=== PATIENT | female | born 1950 | race Asian ===

== ENCOUNTER 2021-01-29 18:52 | Inpatient (IN) | payer BC, MEDICAID ==
[2021-01-29] MEDS ORDERED: AMLO-212 PO (18:56)
[2021-01-29] MEDS ORDERED: LOSA50TA39 PO (18:56)
[2021-01-29] MEDS ORDERED: FENO145T21 PO (18:56)
--- NOTE | 2021-01-29 19:00 | NUR ---
RAILROAD SIGNAL OPERATOR NOTE ADMITE 70 YEAR OLD FEMALE TO [facility] UN[facility] AT ROOM 112 FOR [facility] DIRECT ADMIT UNDER MEDICAL SERVICE OF DR KAY WITH ACUTE KIDNEY INJURY WITH LEARNING OFFICER COMPLAIN ABDOMINAL PAIN NAUSEA AND VOMITING, PATIENT ARRIVED ON GURNEY ACCOMPANIED BY 2EMTS.ALERT ORIENTED X4 TAHI SPEAKING,LITTLE AFGHAN,ON OXYGEN 5L VIA NASAL CANNULA, O2:94% IV SITE IS ON LEFT AC INTACT PATENT SKIN ON RECTAL AREA REDNESS,INCONTINENT TO BOWEL/BLADDER.SAFETY MEASURE IMPLEMENT BED IN LOW POSITION AND LOCKED CONTINUE TO MONITOR.
[2021-01-29] MEDS ORDERED: ACETAMINOPHEN 325 MG TABLET PO PRN (19:30)
[2021-01-29] MEDS ORDERED: MORPHINE SULFATE INJ 2 MG/ML DISP.SYRIN IV PRN (19:30)
[2021-01-29] MEDS: CEFTRIAXONE 1 G in IV D5W 50 ML IV SCH ×2 (19:30→20:22)
[2021-01-29] MEDS ORDERED: MAG HYDROX/AL HYDROX/SIMETH 30 ML UDC PO PRN (19:30)
[2021-01-29] MEDS ORDERED: ONDANSETRON HCL/PF 4 MG/2 ML VIAL IVP PRN (19:30)
[2021-01-29] MEDS ORDERED: Z GUARD REMEDY 2 OZ OINT TP PRN (19:30)
[2021-01-29] MEDS ORDERED: MAGNESIUM HYDROXIDE 30 ML UDC PO PRN (19:30)
[2021-01-29 20:00] VITALS: BP 107/54
[2021-01-29] MEDS ORDERED: CEFTRIAXONE 1 G VIAL ONE (20:17)
[2021-01-29] MEDS: IV NS 0.9% 1,000 ML IV PRN (20:23)
--- NOTE | 2021-01-29 20:33 | NUR ---
MERCHANDISER RETAIL REPRESENTATIVE NOTE VERIFIED WITH DR KAY REGARDING ROCEPHIN 1 GM WHICH WAS GIVEN TO PT AT NOON AT [place]. PER MD NOT TO GIVE 1930 DOSE, IT'S Q DAILY. INFORMED THE NURSE MICHELLE TO HOLD THE MED.
[2021-01-30] VITALS (9 sets, daily range): BP systolic 80–121; BP diastolic 45–74
--- NOTE | 2021-01-30 06:55 | NUR ---
RN NOTE PATIENT REMAINS ON ALERT ORIENTED X4 VERBALLY RESPONSIVE ON 5L OXYGEN VIA NASAL CANNULA,O2:95% NO SOB NOT ACUTE DISTRESS NOTED,ON IV HYDRATION NS 75CC/HR ALL DUE MED GIVEN MD ORDERED KEPT CLEAN AND DRY ALL THE TIME ALL NEEDS MET ENDORSE NEXT COMING SHIFT FOR CONTINUATION OF CARE.
[2021-01-30 07:02] LABS: BASOPHILS % (AUTO) 0.1 % (0.0-2.0); HEMATOCRIT 28 % (33-45); HEMOGLOBIN 9.3 g/dL (11.5-14.8); LYMPHOCYTES # (AUTO) 0.6 K/uL (0.8-4.8); LYMPHOCYTES % (AUTO) 1.2 % (20.0-44.0); MEAN CORPUSCULAR HGB CONC 34 g/dl (31.0-36.0); MEAN CORPUSCULAR VOLUME 104 fL (82-100); MONOCYTES % (AUTO) 2.2 % (2.0-12.0); NEUTROPHILS # (AUTO) 45.1 K/uL (1.8-8.9); NEUTROPHILS % (AUTO) 96.5 % (43.0-81.0); PLATELET COUNT (AUTO) 403 K/uL (150-450); RED BLOOD CELL COUNT(AUTO) 2.67 MIL/uL (4.0-5.2)
--- NOTE | 2021-01-30 07:30 | NUR ---
SOAKER HIDES AM NOTE PATIENT IN BED, AAO X4 VERBALLY RESPONSIVE ON 5L OXYGEN VIA NASAL CANNULA,O2:92% NO SOB NO ACUTE DISTRESS NOTED,SINUS TACH HR 102 ON MONITOR. DENIES CHEST PAIN OR DISCOMFORT. ON IV HYDRATION NS 75CC/HR SITE CLEAR. REGULAR DIET. POV DISCUSSED, VERBALIZED UNDERSTANDING. SAFETY MEASURES IN PLACE. BED LOW LOCKED, CALL LIGHT WITHIN REACH WILL CONTINUE TO MONITOR
[2021-01-30 07:32] LABS: BILIRUBIN,DIRECT 0.3 mg/dL (0.0-0.2); BILIRUBIN,TOTAL 0.5 mg/dL (0.2-1.0); CALCIUM, SERUM 7.9 mg/dL (8.5-10.1); CREATININE 2.7 mg/dL (0.6-1.3); MAGNESIUM 1.9 mg/dL (1.8-2.4); POTASSIUM 4.4 mmol/L (3.5-5.1); TOTAL PROTEIN, SERUM 5.9 g/dL (6.4-8.2)
[2021-01-30 07:47] LABS: WHITE BLOOD COUNT (AUTO) 46.7 K/uL (4.3-11.0)
--- NOTE | 2021-01-30 07:48 | NUR ---
RN NOTES CRITICAL RESULT WBC 46.7 AND PHOSPOROUS 8.2 - RELAYED TO [facility].
[2021-01-30 07:49] LABS: PHOSPHORUS 8.2 mg/dL (2.5-4.9)
[2021-01-30 08:33] LABS: BAND % (MANUAL) 8 % (0.0-5.0); LYMPHOCYTES % (MANUAL) 1 % (16-48); NEUTROPHILS % (MANUAL) 89 (42-76)
[2021-01-30 08:34] LABS: MONOCYTES % (MANUAL) 2 % (0-11.0)
--- NOTE | 2021-01-30 09:30 | NUR ---
RN NOTES DUE MEDS GIVEN
[2021-01-30 11:00] LABS: AMYLASE 191 U/L (25-115); LIPASE 520 U/L (73-393)
[2021-01-30] MEDS: MEROPENEM 500 MG in IV NS 0.9% 50 ML IV SCH ×2 (11:28→22:14)
[2021-01-30 12:54] LABS: THYROID STIMULATING HORMONE 0.762 uIU/mL (0.358-3.74)
--- NOTE | 2021-01-30 13:00 | NUR ---
RN NOTES PATIENT TRANSFERRED TO [facility]-1 REPORT GIVEN TO GONZALO. RN FOR ALYSHA
--- NOTE | 2021-01-30 13:10 | NUR ---
RECEIVED PATIENT FROM [facility] - PATIENT IS AWAKE, STABLE, A/O X4. STABLE ON 5L O2 VIA NASAL CANNULA - SATURATING AT 95%. NO SOB NOTED. NO DISTRESS/DISCOMFORT NOTED. PATIENT IS ANXIOUS FOR THORACENTESIS PROCEDURE. ON TELE MONITOR - READS SINUS TACHY @ 101. IV ACCESS TO LEFT AC #20 - RUNNING 75ML/HR. SAFETY MEASURES IN PLACE. CALL LIGHT WITHIN REACH. WILL CONTINUE TO MONITOR.
--- NOTE | 2021-01-30 18:32 | NUR ---
FIREBRICK LAYER CLOSING NOTE PATIENT CURRENTLY LYING IN BED, RESTING. EASY TO AROUSE. A/O X4. STABLE ON 5L O2 VIA NASAL CANNULA - SATURATING AT 95%. NO SOB NOTED. NO DISTRESS/DISCOMFORT NOTED. S/P THORACENTESIS PROCEDURE - PLEURAL FLUID SENT TO LAB FOR CULTURE. ON TELE MONITOR - READS SINUS TACHY @ 102. IV ACCESS TO LEFT AC #20 - RUNNING 75ML/HR. SAFETY MEASURES IN PLACE. CALL LIGHT WITHIN REACH. WILL ENDORSE TO SENIOR EDITOR NURSE FOR ALYSHA.
--- NOTE | 2021-01-30 19:30 | NUR ---
RN OPENING NOTE PATIENT IN BED, AWAKE. PATIENT IS A/O X 4, PATIENT IS ABLE TO MAKE NEEDS KNOWN. SHE IS ON 5 LPM OF 02 SUPPLEMENT, SATTING AT 98%. PATIENT HAS MILD SOB OBSERVED. L AC 20 G PATENT AND INTACT, NS AT 75 ML/HR. SAFETY MEASURES IN PLACE: BED LOCKED AND IN LOWEST POSITION, CALL LIGHT WITHIN REACH, SIDE RAILS UP. WILL MONITOR PATIENT CLOSELY. Addendum: 01/30/21 at 2020 by TAMIKO ALSTON RN TELE MONITOR READS SR-ST 98-102 BPM
--- NOTE | 2021-01-30 22:30 | NUR ---
RN NOTE R FA 22 G INSERTED D/T L AC REDDENED AND EDEMATOUS.
--- NOTE | 2021-01-30 22:45 | NUR ---
RN NOTE MORPHINE GIVEN FOR 8/10 PAIN ON LEFT SHOULDER AND BACK
[2021-01-30] MEDS: IV NS 0.9% 1,000 ML IV PRN (22:46)
[2021-01-31] VITALS: BP 103/53
[2021-01-31 04:00] VITALS: BP 129/59
[2021-01-31 04:06] LABS: CARBOHYDRATE AG 19-9 26 U/mL (0-35)
[2021-01-31 06:43] LABS: BASOPHILS % (AUTO) 0.1 % (0.0-2.0); HEMATOCRIT 26 % (33-45); HEMOGLOBIN 8.6 g/dL (11.5-14.8); LYMPHOCYTES # (AUTO) 0.5 K/uL (0.8-4.8); LYMPHOCYTES % (AUTO) 1.5 % (20.0-44.0); MEAN CORPUSCULAR HGB CONC 34 g/dl (31.0-36.0); MEAN CORPUSCULAR VOLUME 103 fL (82-100); MONOCYTES # (AUTO) 1.3 K/uL (0.1-1.30); MONOCYTES % (AUTO) 3.6 % (2.0-12.0); NEUTROPHILS # (AUTO) 33.8 K/uL (1.8-8.9); NEUTROPHILS % (AUTO) 94.8 % (43.0-81.0); PLATELET COUNT (AUTO) 403 K/uL (150-450); RED BLOOD CELL COUNT(AUTO) 2.48 MIL/uL (4.0-5.2)
--- NOTE | 2021-01-31 06:55 | NUR ---
RN CLOSING NOTE PATIENT IN BED, EYES CLOSED. PATIENT IS EASILY AWAKENED. ABLE TO MAKE NEEDS KNOWN. PATIENT STILL CONTINUES TO BE SOB AND HAVE WHEEZING, STABLE ON 5 LPM, PATENT SATURATES FROM 94-97%. NO INCREASED SOB OBSERVED, AND VITAL SIGNS REMAINED STABLE. PATIENT DOES NOT COMPLAIN OF ANY PAIN AT THIS TIME. RFA 22G PATENT AND INTACT WITH NS @75 ML/HR RUNNING. SAFETY MEASURES IMPLEMENTED, ALL NEEDS MET AND ATTENDED, ALL ORDERS CARRIED OUT. WILL ENDORSE TO DAY SHIFT NURSE FOR ALYSHA.
[2021-01-31 07:09] LABS: ALBUMIN 1.7 g/dL (3.4-5.0); BILIRUBIN,DIRECT 0.3 mg/dL (0.0-0.2); BILIRUBIN,TOTAL 0.4 mg/dL (0.2-1.0); CALCIUM, SERUM 8.6 mg/dL (8.5-10.1); CREATININE 2.7 mg/dL (0.6-1.3); MAGNESIUM 2.1 mg/dL (1.8-2.4); PHOSPHORUS 6.8 mg/dL (2.5-4.9); POTASSIUM 4.6 mmol/L (3.5-5.1); TOTAL PROTEIN, SERUM 5.4 g/dL (6.4-8.2)
[2021-01-31] MEDS: IV NS 0.9% 1,000 ML IV PRN (07:26)
--- NOTE | 2021-01-31 07:30 | NUR ---
RN OPENING NOTE RECEIVED PATIENT IN BED. A/O X4. ON 02 AT 5 LPM. SATURATING WELL AT 97%. PT HAVING EPISODES OF SOB. DENIES ANY PAIN OR DISCOMFORT AT THIS TIME. TELE READING SHOWS ST 105. IV ACCESS ON R FA #22G, NS X 75 ML/HR, INTACT AND PATENT. SAFETY MEASURES MAINTAINED. BED IN LOWEST POSITION, BRAKES LOCKED. SIDE RAILS UP X2. CALL LIGHT WITHIN REACH. WILL CONTINUE PLAN OF CARE.
--- NOTE | 2021-01-31 07:46 | NUR ---
RN NOTE RECEIVED A CALL FROM THE LAB ([facility]) REGARDING CRITICAL VALUE, WBC OF 35.6. DR. TONNY KAY MD IS MADE AWARE.
[2021-01-31 07:48] LABS: WHITE BLOOD COUNT (AUTO) 35.6 K/uL (4.3-11.0)
[2021-01-31 08:00] VITALS: BP 116/61
[2021-01-31 08:07] LABS: IMMUNOGLOBULIN A, SERUM 143 mg/dL (87-352); IMMUNOGLOBULIN G, SERUM 768 mg/dL (586-1602); IMMUNOGLOBULIN M, SERUM 53 mg/dL (26-217)
[2021-01-31 09:25] LABS: BILIRUBIN,URINE SMALL (NEGATIVE); COLOR,URINE YELLOW (YELLOW); LEUKOCYTE ESTERASE ,URINE NEGATIVE (NEGATIVE); NITRITE, URINE NEGATIVE (NEGATIVE); PH,URINE 5.5 (5.0-8.0); PROTEIN,URINE TRACE mg/dl (NEGATIVE); UGLUCOSE NEGATIVE (NEGATIVE); UROBILINOGEN,URINE 0.2 EU/dL (0.2)
[2021-01-31 09:43] LABS: WBC,URINE 0-3 /HPF (0-3)
[2021-01-31 09:44] LABS: BACTERIA,URINE Few /HPF (None Seen); SQUAMOUS EPITHELIAL CELL,UR Moderate /HPF (None Seen)
[2021-01-31] MEDS: MEROPENEM 500 MG in IV NS 0.9% 50 ML IV SCH ×2 (10:13→23:20)
[2021-01-31 10:21] LABS: BAND % (MANUAL) 1 % (0.0-5.0); LYMPHOCYTES % (MANUAL) 1 % (16-48); MONOCYTES % (MANUAL) 2 % (0-11.0); NEUTROPHILS % (MANUAL) 96 (42-76)
[2021-01-31 12:00] VITALS: BP 133/72
[2021-01-31 12:15] LABS: ABG BASE EXCESS -12.8 mmol/L; ABG OXYGEN SATURATION 84.4 % (92.0-98.5); ABG PCO2 24.2 mmHg (35.0-45.0); ABG PO2 52.9 mmHg (75.0-100.0); AaDO2 175.7 mmHg; COHb 0.3 % (0.5-1.5); MetHb 0.3 % (0.0-1.5); O2Hb 83.9 % (94.0-97.0); VENT MODE, BG 4L 02
[2021-01-31] MEDS: Sodium Bicarbonate 100 MEQ in IV D5 / 0.2% NACL 1,000 ML IV SCH (12:46)
[2021-01-31 16:00] VITALS: BP 122/65
--- NOTE | 2021-01-31 18:33 | NUR ---
RN CLOSING NOTE PATIENT RESTING IN BED. A/O X4. ON 02 AT 6 LPM. SATURATING WELL AT 95%. DENIES ANY PAIN OR DISCOMFORT AT THIS TIME. TELE READING SHOWS ST 108. IV ACCESS ON R FA #22G, NS X 75 ML/HR, INTACT AND PATENT. NO SIGNS OF INFILTRATION. DUE MEDS GIVEN ORDERED. ABLE TO MAKE NEEDS KNOWN. SAFETY MEASURES MAINTAINED. BED IN LOWEST POSITION, BRAKES LOCKED. SIDE RAILS UP X2. KEPT CALL LIGHT WITHIN REACH. WILL ENDORSE CONTINUITY OF CARE TO ONCOMING SHIFT.
--- NOTE | 2021-01-31 19:54 | NUR ---
CHIMNEY BUILDER BRICK OPENING PATIENT IN BED AWAKE AND ALERT, SEEMS IN DISTRESS. OXYGEN IN 6LPM VIA NC -- INITIATED HUMIDIFIER. PATIENT HAS NO C/O PAIN AT THIS TIME. DEPUTY PROBATION OFFICER READING SINUS TACHY. NA BICARB IN D5 / NS RUNNING AT 75 ML/HR. SAFETY IN PLACE. WILL CONTINUE TO MONITOR.
[2021-01-31 20:00] VITALS: BP 136/66
[2021-02-01] VITALS: BP 125/69
[2021-02-01] MEDS: Sodium Bicarbonate 100 MEQ in IV D5 / 0.2% NACL 1,000 ML IV SCH ×2 (01:41→15:27)
[2021-02-01 04:00] VITALS: BP 131/68
[2021-02-01 06:56] LABS: CALCIUM, SERUM 8.3 mg/dL (8.5-10.1); CREATININE 1.7 mg/dL (0.6-1.3); MAGNESIUM 1.8 mg/dL (1.8-2.4); POTASSIUM 3.5 mmol/L (3.5-5.1)
--- NOTE | 2021-02-01 07:40 | NUR ---
tele closing note no significant change. report given to [facility] for continuity of care.
--- NOTE | 2021-02-01 07:45 | NUR ---
RN OPENING NOTES Patient seen lying in bed, respirations even and unlabored, no apparent distress noted, no SOB, denies any pain or discomfort at this time, no dizziness, no headache at this time. Call light left within reach, safety measures maintained, brakes locked, side rails up X 2, will monitor closely for any changes.
[2021-02-01 08:00] VITALS: BP 125/67
[2021-02-01 08:02] LABS: BASOPHILS # (AUTO) 0.1 K/uL (0.0-0.2); BASOPHILS % (AUTO) 0.4 % (0.0-2.0); EOSINOPHILS % (AUTO) 0.1 % (0.0-6.0); HEMATOCRIT 26 % (33-45); HEMOGLOBIN 8.8 g/dL (11.5-14.8); LYMPHOCYTES # (AUTO) 0.3 K/uL (0.8-4.8); LYMPHOCYTES % (AUTO) 1.4 % (20.0-44.0); MEAN CORPUSCULAR HGB CONC 34 g/dl (31.0-36.0); MEAN CORPUSCULAR VOLUME 101 fL (82-100); MONOCYTES # (AUTO) 1.1 K/uL (0.1-1.30); MONOCYTES % (AUTO) 4.6 % (2.0-12.0); NEUTROPHILS # (AUTO) 23.3 K/uL (1.8-8.9); NEUTROPHILS % (AUTO) 93.5 % (43.0-81.0); PLATELET COUNT (AUTO) 396 K/uL (150-450); RED BLOOD CELL COUNT(AUTO) 2.56 MIL/uL (4.0-5.2); WHITE BLOOD COUNT (AUTO) 24.9 K/uL (4.3-11.0)
[2021-02-01 08:10] LABS: MAGNESIUM 1.9 mg/dL (1.8-2.4); PHOSPHORUS 3.7 mg/dL (2.5-4.9)
[2021-02-01] MEDS: MEROPENEM 500 MG in IV NS 0.9% 50 ML IV SCH ×2 (11:13→22:26)
--- NOTE | 2021-02-01 19:30 | NUR ---
PAVING AND SURFACING LABOURER OPENING NOTES RECEIVED PATIENT ON BED, AWAKE, A/O X4. ON 02 AT 5 LPM, WITH NO SIGNS OF DISTRESS NOTED. WITH NO COMPLAINTS OF PAIN OR DISCOMFORT AT THIS TIME. ON MISSION ASSESSMENT SPECIALIST, READING SHOWS SINUS TACHYCARDIA AT 105BPM. WITH IV ACCESS AT RIGHT FA G20, SALINE LOCKED, INTACT AND PATENT. SAFETY MEASURES IN PLACED. BED ON LOWEST AND LOCKED POSITION. SIDE RAILS UP X2. CALL LIGHT WITHIN REACH. WILL CONTINUE TO MONITOR.
[2021-02-01 20:00] VITALS: BP 127/70
[2021-02-02] VITALS (7 sets, daily range): BP systolic 115–156; BP diastolic 68–86
--- NOTE | 2021-02-02 06:21 | NUR ---
VP COMPLIANCE CLOSING NOTES PATIENT ON BED, AWAKE, A/O X4. ON 02 AT 5 LPM, WITH NO SIGNS OF DISTRESS NOTED. WITH NO COMPLAINTS OF PAIN OR DISCOMFORT AT THIS TIME. ON LUBRICATING ENGINEER, READING SHOWS SINUS TACHYCARDIA AT 104BPM WITH SOME PVCs AND SOME PACs. WITH IV ACCESS AT RIGHT FA G20, SALINE LOCKED, INTACT AND PATENT. SAFETY MEASURES IN PLACED. BED ON LOWEST AND LOCKED POSITION. SIDE RAILS UP X2. CALL LIGHT WITHIN REACH. WILL ENDORSE TO NEXT SHIFT.
[2021-02-02 06:27] LABS: EOSINOPHILS % (AUTO) 0.1 % (0.0-6.0); HEMATOCRIT 23 % (33-45); LYMPHOCYTES # (AUTO) 0.5 K/uL (0.8-4.8); LYMPHOCYTES % (AUTO) 2.9 % (20.0-44.0); MEAN CORPUSCULAR HGB CONC 34 g/dl (31.0-36.0); MEAN CORPUSCULAR VOLUME 101 fL (82-100); MONOCYTES # (AUTO) 1.3 K/uL (0.1-1.30); MONOCYTES % (AUTO) 7.8 % (2.0-12.0); NEUTROPHILS # (AUTO) 14.7 K/uL (1.8-8.9); NEUTROPHILS % (AUTO) 89.2 % (43.0-81.0); PLATELET COUNT (AUTO) 354 K/uL (150-450); RED BLOOD CELL COUNT(AUTO) 2.32 MIL/uL (4.0-5.2); WHITE BLOOD COUNT (AUTO) 16.5 K/uL (4.3-11.0)
[2021-02-02 07:02] LABS: CALCIUM, SERUM 7.7 mg/dL (8.5-10.1); CREATININE 1.1 mg/dL (0.6-1.3); MAGNESIUM 1.6 mg/dL (1.8-2.4); PHOSPHORUS 2.8 mg/dL (2.5-4.9); POTASSIUM 3.3 mmol/L (3.5-5.1)
--- NOTE | 2021-02-02 07:35 | NUR ---
PRESSURE SEALER AND TESTER OPENING NOTES RECEIVED PATIENT AWAKE IN BED IN NO ACUTE SIGNS OF DISTRESS. A/O X4. VERBALLY RESPONSIVE, DENIES PAIN OR ANY DISCOMFORTS AT THIS TIME. ON 02 VIA N/C AT 5LPM, TOLERATING WELL, NO C/O SOB VOICED AT THIS TIME. ON EXTERNAL DIRECTOR REVENUE WITH CURRENT READING OF ST HR 104, NO C/O CARDIAC DISTRESS VOICED. IV SL ON RIGHT FA G#22 INTACT, PATENT AND FLUSHES WELL. SAFETY PRECAUTIONS MAINTAINED: BED IN LOWEST AND LOCKED POSITION, HOB ELEVATED, SIDE RAILS UP X2 AND CALL LIGHT WITHIN REACH. WILL CONTINUE TO MONITOR PT ACCORDINGLY.
[2021-02-02] MEDS: Magnesium 1GM/D5W 100ML PREMIX 100 ML IV SCH ×2 (08:07→09:09)
[2021-02-02] MEDS: POTASSIUM CL. PREMIX PERIPHER. 50 ML IV SCH ×4 (10:19→15:43)
[2021-02-02] MEDS: MEROPENEM 500 MG in IV NS 0.9% 50 ML IV SCH ×2 (11:20→22:23)
--- NOTE | 2021-02-02 11:57 | NUR ---
RN NOTES PHYSICAL THERAPIST MICHAEL SEEN PT FOR PHYSICAL EVAL. PT REFUSED DUE TO SOB/WEAKNESS, BENEFITS OF PHYSICAL THERAPY EXPLAINED, VERBALIZED UNDERSTANDING. MICHAEL WILL TRY AGAIN TOMORROW.
--- NOTE | 2021-02-02 18:59 | NUR ---
CORPORATE COMMUNICATIONS SPECIALIST CLOSING NOTES PT IN BED RESTING @ SEMI-FOWLERS POSITION. A/O X-4. ABLE TO MAKE NEEDS KNOWN. ON 02 VIA N/C AT 6LPM, TOLERATING WELL WITH NO SOB NOTED. TELE-MONITOR SHOWS NSR AND ST DURING SHIFT , HR ON THE 90'S TO 110, NO C/O CARDIAC DISTRESS VOICED. IV ACCESS ON RFA G#22 INTACT, PATENT AND FLUSHES WELL. ALL NEEDS AND CARE ATTENDED WELL. SAFETY MEASURES IN PLACE: BED IN LOWEST LOCKED POSITION, SIDE-RAILS UP X2 AND CALL LIGHT WITHIN REACH. WILL ENDORSE ALYSHA TO MOBILE BATTERY TECHNICIAN NURSE.
--- NOTE | 2021-02-02 19:30 | NUR ---
DREDGE PIPE INSTALLER OPENING NOTES PT ON BED, RESTING @ SEMI-FOWLERS POSITION. A/O X-4. ABLE TO MAKE NEEDS KNOWN. ON 02 VIA NASAL CANNULA AT 6LPM, TOLERATING WELL WITH NO SOB NOTED. ON TELE-MONITOR READING SINUS TACHYCARDIA AT 102BPM. WITH NO COMPLAINTS OF PAIN OR DISCOMFORT. WITH IV ACCESS AT RIGHT FA G22, SALINE LOCKED, INTACT, PATENT AND FLUSHES WELL. SAFETY MEASURES IN PLACED: BED ON LOWEST AND LOCKED POSITION, SIDE-RAILS UP X2 AND CALL LIGHT WITHIN REACH. CONTINUE TO MONITOR.
[2021-02-03] VITALS: BP 140/77
[2021-02-03 00:14] VITALS: BP 140/77
[2021-02-03 04:00] VITALS: BP 143/76
[2021-02-03 05:11] VITALS: BP 143/76
--- NOTE | 2021-02-03 06:42 | NUR ---
ANALYTICAL LAB TECHNICIAN CLOSING NOTES PT ON BED, RESTING @ SEMI-FOWLERS POSITION. A/O X-4. ON 02 VIA NASAL CANNULA AT 5LPM, TOLERATING WELL WITH NO SOB NOTED. ON TELE-MONITOR READING SINUS TACHYCARDIA AT 106BPM. WITH NO COMPLAINTS OF PAIN OR DISCOMFORT. WITH IV ACCESS AT RIGHT HAND G22, SALINE LOCKED, INTACT AND PATENT. SAFETY MEASURES IN PLACED: BED ON LOWEST AND LOCKED POSITION, SIDE-RAILS UP X2 AND CALL LIGHT WITHIN REACH. WILL ENDORSE TO NEXT SHIFT FOR ALYSHA.
--- NOTE | 2021-02-03 07:30 | NUR ---
RN OPENING NOTES Patient seen comfortably lying in bed, no SOB, no respiratory distress, on oxygen via nasal cannula at 5LPM, tolerating well, no c/o pain or discomfort at this time. Safety precautions maintained, brakes locked, side rails up X 2, call light left within reach, will monitor closely for any changes.
[2021-02-03 07:46] LABS: BASOPHILS % (AUTO) 0.1 % (0.0-2.0); EOSINOPHILS % (AUTO) 0.3 % (0.0-6.0); HEMATOCRIT 24 % (33-45); LYMPHOCYTES # (AUTO) 0.6 K/uL (0.8-4.8); MEAN CORPUSCULAR HGB CONC 34 g/dl (31.0-36.0); MEAN CORPUSCULAR VOLUME 101 fL (82-100); MONOCYTES # (AUTO) 1.5 K/uL (0.1-1.30); MONOCYTES % (AUTO) 9.7 % (2.0-12.0); NEUTROPHILS # (AUTO) 13.5 K/uL (1.8-8.9); NEUTROPHILS % (AUTO) 85.9 % (43.0-81.0); PLATELET COUNT (AUTO) 358 K/uL (150-450); RED BLOOD CELL COUNT(AUTO) 2.32 MIL/uL (4.0-5.2); WHITE BLOOD COUNT (AUTO) 15.7 K/uL (4.3-11.0)
[2021-02-03 08:00] VITALS: BP 140/77
--- NOTE | 2021-02-03 08:00 | NUR ---
Patient has an order for CT of abdomen with contrast, explained to patient about the procedure, patient prefers not to do it, per patient she already had one done before, explained risks and benefits thrice, still refused, MD made aware of the situation, will monitor closely for any changes.
[2021-02-03] MEDS ORDERED: Magnesium 1GM/D5W 100ML PREMIX 100 ML IV SCH (10:00)
[2021-02-03] MEDS: ENSURE ENLIVE 237 ML LIQUID (VANILLA) PO SCH (10:33)
[2021-02-03] MEDS: MEROPENEM 500 MG in IV NS 0.9% 50 ML IV SCH ×2 (10:35→22:34)
[2021-02-03 11:04] LABS: CALCIUM, SERUM 7.8 mg/dL (8.5-10.1); CREATININE 0.8 mg/dL (0.6-1.3); MAGNESIUM 1.7 mg/dL (1.8-2.4); PHOSPHORUS 2.7 mg/dL (2.5-4.9); POTASSIUM 3.7 mmol/L (3.5-5.1)
--- NOTE | 2021-02-03 18:38 | NUR ---
RN CLOSING NOTES Patient in bed, , on oxygen via nasal cannula at 5LPM, tolerating well, no SOB, no respiratory distress, no c/o pain or discomfort at this time. All due medications given, tolerating well. All needs attended, kept clean and dry, call light left within reach, safety precautions maintained, brakes locked, side rails up X 2, will endorse to next shift for continuity of care.
--- NOTE | 2021-02-03 19:55 | NUR ---
AMBULATORY SERVICE REPRESENTATIVE OPENING NOTES Patient is A&Ox4. Denies any needs at this time. Audible wheezing heard upon expiration though patient denies any SOB. O2 sat at 98%. HOB elevated 40 deg angle. IV flushed, intact, and patent. Will continue to monitor.
[2021-02-03 20:00] VITALS: BP 135/80
--- NOTE | 2021-02-03 23:30 | NUR ---
d/t patients AM lab Glucose 64 at 0600 on day prior -2 apple juice given just prior to being NPO at 0000 for AM procedure.
--- NOTE | 2021-02-03 23:58 | NUR ---
Patient feeling SOB, audible wheezing. O2 sat 94%, New order from Albuterol neb q4h. RT called.
[2021-02-04] VITALS: BP 161/90
[2021-02-04] MEDS: ALBUTEROL FS 2.5 MG/3 ML VIAL.NEB NEB SCH ×7 (00:39→23:27)
[2021-02-04] MEDS: IPRATROPIUM NEB FS 0.5 MG/2.5 ML AMPUL.NEB NEB SCH ×6 (03:29→23:27)
[2021-02-04 04:00] VITALS: BP 155/75
--- NOTE | 2021-02-04 05:30 | NUR ---
attempted to obtain #20G IV access for upcoming CT abdomen with contrast. made 2 unsuccessful attempts. Pt refused for any more tries even from garage helper states she wants to rest and its too painful. will endorse to next rn
--- NOTE | 2021-02-04 07:08 | NUR ---
Patient has been A&Ox4. Able to make needs known. Tolerating new breathing treatments well no further episodes of SOB. On 5L O2 via NC. Patient stated she does not want to sign CT of abd consents until right before procedure because she is unsure as to how she will be feeling. -papers in chart. ST on monitor approx. 114 with occasional PACs.
--- NOTE | 2021-02-04 07:15 | NUR ---
PRESCRIPTION BENEFIT SPECIALIST OPENING NOTES RECEIVED PATIENT AWAKE IN BED IN NO ACUTE SIGNS OF DISTRESS. PATIENT IS A/O X4. ABLE TO VERBALIZE NEEDS. SHE DENIES ANY PAIN OR DISCOMFORT AT THIS TIME. PATIENT IS ON OXYGEN AT 5LPM VIA NASAL CANULA, TOLERATING WELL. ON EXTERNAL EPIC AMBULATORY ANALYSTS READING OF ST WITH HR 114. WITH IV ACCESS ON RIGHT HAND G#22, PATENT AND INTACT, FLUSHING WELL. PATIENT KEPT ON NPO FOR PENDING PROCEDURE BUT HAS NOT SIGNED YET. SHE SAID I CAN ASK AGAIN IF SHE WILL CONSENT FOR IT LATER WHEN SHE IS CALLED FOR THE PROCEDURE. SAFETY PRECAUTIONS MAINTAINED WITH BED IN LOWEST AND LOCKED POSITION, HOB ELEVATED, SIDE RAILS UP X2 AND CALL LIGHT AND BEDSIDE TABLE WITHIN REACH. WILL CONTINUE TO MONITOR PT.
[2021-02-04] MEDS: Magnesium 1GM/D5W 100ML PREMIX 100 ML IV SCH ×2 (08:55→09:51)
[2021-02-04] MEDS: ENSURE ENLIVE 237 ML LIQUID (VANILLA) PO SCH (08:56)
[2021-02-04 09:00] VITALS: BP 142/74
[2021-02-04] MEDS: MEROPENEM 500 MG in IV NS 0.9% 50 ML IV SCH ×2 (11:34→23:24)
[2021-02-04] MEDS ORDERED: IV NS 0.9% 250 ML IV ONE (15:33)
[2021-02-04] MEDS ORDERED: IOHEXOL-300 100 ML VIAL IV ONE (15:33)
[2021-02-04] MEDS ORDERED: CT SWABBABLE VALVE TRANS SET 1 EA INFUS.SET MC ONE (15:33)
--- NOTE | 2021-02-04 19:00 | NUR ---
RESEARCH STAFF MEMBER CLOSING NOTES PATIENT AWAKE IN BED IN NO ACUTE SIGNS OF DISTRESS. PATIENT IS A/O X4. ABLE TO VERBALIZE NEEDS. SHE DENIES ANY PAIN OR DISCOMFORT AT THIS TIME. PATIENT IS ON OXYGEN AT 5LPM VIA NASAL CANULA, TOLERATING WELL. ON EXTERNAL LEGAL FILE CLERK READING OF ST WITH HR 112. WITH IV ACCESS ON RIGHT HAND G#22, PATENT AND INTACT, FLUSHING WELL. SAFETY PRECAUTIONS MAINTAINED WITH BED IN LOWEST AND LOCKED POSITION, HOB ELEVATED, SIDE RAILS UP X2 AND CALL LIGHT AND BEDSIDE TABLE WITHIN REACH. WILL ENDORSE PATIENT FOR CONTINUITY OF CARE.
[2021-02-04 20:00] VITALS: BP 138/81
--- NOTE | 2021-02-04 20:05 | NUR ---
television tube inspector Opening Notes Patient was last seen awake in bed resting. Patient's alert and oriented x4. Patient's on 3L of oxygen via nasal cannula with no respiratory distress noted. Patient's connected to a tele monitor showing ST with a HR of 117. Patient has IV accesses on her RFA gauge #22 and LFA gauge #20. Patient's in no acute distress at this time. Safety measures in place: Bed locked, bed alarm on, side rails upx3, and call light within reach of the patient. Will continue to monitor the patient.
[2021-02-05] VITALS: BP 139/81
[2021-02-05 04:00] VITALS: BP 143/81
[2021-02-05] MEDS: ALBUTEROL FS 2.5 MG/3 ML VIAL.NEB NEB SCH ×6 (04:21→23:17)
[2021-02-05] MEDS: IPRATROPIUM NEB FS 0.5 MG/2.5 ML AMPUL.NEB NEB SCH ×6 (04:21→23:17)
--- NOTE | 2021-02-05 07:00 | NUR ---
patternmaker pressure cast Closing Notes Patient was last seen sleeping in bed. Patient's alert and oriented x4. Patient's on 3L of oxygen via nasal cannula with no respiratory distress noted. Patient's connected to a tele monitor showing ST with a HR of 116. Patient has saline locks on her right hand gauge #22 and LFA gauge #20, which are intact, patent, and flushing well. Patient's in no acute distress at this time. Safety measures in place: Bed locked, bed alarm on, side rails upx3, and call light within reach of the patient. Will endorse care to the day shift nurse.
--- NOTE | 2021-02-05 07:15 | NUR ---
MATHEMATICS ACADEMIC CHAIR OPENING NOTES RECEIVED PATIENT AWAKE IN BED IN NO ACUTE SIGNS OF DISTRESS. PATIENT IS A/O X4. ABLE TO VERBALIZE NEEDS. SHE DENIES ANY PAIN OR DISCOMFORT AT THIS TIME. PATIENT IS ON OXYGEN AT 3LPM VIA NASAL CANULA, TOLERATING WELL. ON EXTERNAL BARGE LOADER READING OF ST WITH HR 114. WITH IV ACCESS ON RIGHT HAND G#22, PATENT AND INTACT, FLUSHING WELL. PATIENT KEPT ON NPO FOR PENDING PROCEDURE. SAFETY PRECAUTIONS MAINTAINED WITH BED IN LOWEST AND LOCKED POSITION, HOB ELEVATED, SIDE RAILS UP X2 AND CALL LIGHT AND BEDSIDE TABLE WITHIN REACH. WILL CONTINUE TO MONITOR PT.
[2021-02-05 07:25] LABS: BASOPHILS % (AUTO) 0.3 % (0.0-2.0); EOSINOPHILS % (AUTO) 0.3 % (0.0-6.0); HEMATOCRIT 22 % (33-45); HEMOGLOBIN 7.6 g/dL (11.5-14.8); LYMPHOCYTES # (AUTO) 0.6 K/uL (0.8-4.8); LYMPHOCYTES % (AUTO) 6.1 % (20.0-44.0); MEAN CORPUSCULAR HGB CONC 34 g/dl (31.0-36.0); MEAN CORPUSCULAR VOLUME 100 fL (82-100); MONOCYTES # (AUTO) 1.2 K/uL (0.1-1.30); MONOCYTES % (AUTO) 12.6 % (2.0-12.0); NEUTROPHILS # (AUTO) 7.8 K/uL (1.8-8.9); NEUTROPHILS % (AUTO) 80.7 % (43.0-81.0); PLATELET COUNT (AUTO) 350 K/uL (150-450); RED BLOOD CELL COUNT(AUTO) 2.22 MIL/uL (4.0-5.2); WHITE BLOOD COUNT (AUTO) 9.7 K/uL (4.3-11.0)
[2021-02-05 07:42] LABS: ALBUMIN 1.7 g/dL (3.4-5.0); BILIRUBIN,DIRECT 0.2 mg/dL (0.0-0.2); BILIRUBIN,TOTAL 0.4 mg/dL (0.2-1.0); CREATININE 0.8 mg/dL (0.6-1.3); MAGNESIUM 1.7 mg/dL (1.8-2.4); PHOSPHORUS 2.6 mg/dL (2.5-4.9); POTASSIUM 3.8 mmol/L (3.5-5.1); TOTAL PROTEIN, SERUM 5.2 g/dL (6.4-8.2)
[2021-02-05] MEDS: Magnesium 1GM/D5W 100ML PREMIX 100 ML IV SCH ×2 (08:55→10:13)
[2021-02-05] MEDS: ENSURE ENLIVE 237 ML LIQUID (VANILLA) PO SCH (08:56)
[2021-02-05] MEDS ORDERED: CT SWABBABLE VALVE TRANS SET 1 EA INFUS.SET MC ONE (09:25)
[2021-02-05] MEDS ORDERED: IOHEXOL-350 100 ML VIAL IV ONE (09:25)
[2021-02-05] MEDS ORDERED: IV NS 0.9% 250 ML IV ONE (09:26)
--- NOTE | 2021-02-05 09:45 | NUR ---
VP HUMAN RESOURCES NOTE PATIENT PICKED-UP BY RADIOLOGY NURSE AND TRANSPORTED VIA BED FOR SCHEDULED PROCEDURE. PATIENT IN STABLE CONDITION
--- NOTE | 2021-02-05 10:15 | NUR ---
WASH WORKER NOTE PATIENT BACK FROM PROCEDURE, IN STABLE CONDITION. PATIENT IN STABLE CONDITION.
[2021-02-05] MEDS: MEROPENEM 500 MG in IV NS 0.9% 50 ML IV SCH ×2 (11:31→23:19)
--- NOTE | 2021-02-05 19:00 | NUR ---
DESK MONITOR CLOSING NOTES PATIENT AWAKE IN BED IN NO ACUTE SIGNS OF DISTRESS. PATIENT IS A/O X4. ABLE TO VERBALIZE NEEDS. SHE DENIES ANY PAIN OR DISCOMFORT AT THIS TIME. PATIENT IS ON OXYGEN AT 5LPM VIA NASAL CANULA, TOLERATING WELL. ON EXTERNAL TOOL GRINDER READING OF ST WITH HR 112. WITH IV ACCESS ON RIGHT HAND G#22, PATENT AND INTACT, FLUSHING WELL. SAFETY PRECAUTIONS MAINTAINED WITH BED IN LOWEST AND LOCKED POSITION, HOB ELEVATED, SIDE RAILS UP X2 AND CALL LIGHT AND BEDSIDE TABLE WITHIN REACH. WILL ENDORSE PATIENT FOR CONTINUITY OF CARE.
--- NOTE | 2021-02-05 19:47 | NUR ---
piecer up Opening Notes Patient was last seen awake in bed resting. Patient's alert and oriented x4. Patient's on 3L of oxygen via nasal cannula with no respiratory distress noted. Patient's connected to a tele monitor with no cardiac distress noted. Patient has saline locks on her right hand gauge #22 and LFA gauge #20, which are intact, patent, and flushing well. Patient's in no acute distress at this time. Safety measures in place: Bed locked, bed alarm on, side rails upx3, and call light within reach of the patient. Will continue to monitor the patient.
[2021-02-05 20:00] VITALS: BP 125/68
[2021-02-06] VITALS: BP 127/71
[2021-02-06] MEDS: IPRATROPIUM NEB FS 0.5 MG/2.5 ML AMPUL.NEB NEB SCH ×6 (03:30→23:30)
[2021-02-06] MEDS: ALBUTEROL FS 2.5 MG/3 ML VIAL.NEB NEB SCH ×6 (03:30→23:30)
[2021-02-06 04:00] VITALS: BP 98/63
[2021-02-06 06:52] LABS: BASOPHILS % (AUTO) 0.2 % (0.0-2.0); EOSINOPHILS % (AUTO) 0.4 % (0.0-6.0); LYMPHOCYTES # (AUTO) 0.7 K/uL (0.8-4.8); LYMPHOCYTES % (AUTO) 6.8 % (20.0-44.0); MEAN CORPUSCULAR HGB CONC 35 g/dl (31.0-36.0); MEAN CORPUSCULAR VOLUME 101 fL (82-100); MONOCYTES # (AUTO) 1.2 K/uL (0.1-1.30); MONOCYTES % (AUTO) 11.3 % (2.0-12.0); NEUTROPHILS # (AUTO) 8.3 K/uL (1.8-8.9); NEUTROPHILS % (AUTO) 81.3 % (43.0-81.0); PLATELET COUNT (AUTO) 352 K/uL (150-450); RED BLOOD CELL COUNT(AUTO) 2.01 MIL/uL (4.0-5.2); WHITE BLOOD COUNT (AUTO) 10.2 K/uL (4.3-11.0)
[2021-02-06 07:01] LABS: HEMATOCRIT 20 % (33-45)
--- NOTE | 2021-02-06 07:27 | NUR ---
manager public Closing Notes Patient was last seen awake in bed resting. Patient's alert and oriented x4. Patient's on 4L of oxygen via nasal cannula with no respiratory distress noted. Patient's connected to a tele monitor with no cardiac distress noted. Patient has saline locks on her right hand gauge #22 and LFA gauge #20, which are intact, patent, and flushing well. Patient's in no acute distress at this time. Safety measures in place: Bed locked, bed alarm on, side rails upx3, and call light within reach of the patient. Endorsed care to the day shift nurse. Endorsed to AM nurse Yahir that his latest Hgb level was 7 and latest Hct level was 20.
--- NOTE | 2021-02-06 07:30 | NUR ---
PT RECEIVED RESTING COMFORTABLY IN BED. NO S/S OR C/O PAIN OR DISTRESS NOTED. SIDE RAILS UP X2, CALL LIGHT LEFT WITHIN REACH. WILL CONTINUE PLAN OF CARE
[2021-02-06 07:32] LABS: ALBUMIN 1.7 g/dL (3.4-5.0); BILIRUBIN,DIRECT 0.2 mg/dL (0.0-0.2); BILIRUBIN,TOTAL 0.4 mg/dL (0.2-1.0); CALCIUM, SERUM 8.1 mg/dL (8.5-10.1); CREATININE 0.8 mg/dL (0.6-1.3); PHOSPHORUS 3.7 mg/dL (2.5-4.9); POTASSIUM 4.2 mmol/L (3.5-5.1); TOTAL PROTEIN, SERUM 5.2 g/dL (6.4-8.2)
[2021-02-06] MEDS: ENSURE ENLIVE 237 ML LIQUID (VANILLA) PO SCH (09:21)
[2021-02-06 09:45] LABS: BAND % (MANUAL) 4 % (0.0-5.0); LYMPHOCYTES % (MANUAL) 4 % (16-48); METAMYELOCYTES % 1 % (0-0); MONOCYTES % (MANUAL) 4 % (0-11.0); MYELOCYTES % 1 % (0-0); NEUTROPHILS % (MANUAL) 86 (42-76)
[2021-02-06] MEDS: MEROPENEM 500 MG in IV NS 0.9% 50 ML IV SCH ×2 (12:01→23:37)
[2021-02-06 12:11] VITALS: BP 131/72
[2021-02-06 16:00] VITALS: BP 119/63
--- NOTE | 2021-02-06 19:30 | NUR ---
MS RN OPENING NOTES RECEIVED PATIENT ON BED, AWAKE AND A/O X4. ON O2 VIA NASAL CANNULA AT 4LPM. NO SOB NOTED. NOT IN APPARENT DISTRESS. WITH NO COMPLAINTS OF PAIN OR ANY DISCOMFORT AT THIS TIME. WITH IV ACCESS AT RIGHT HAND G22 AND LEFT FA G20, BOTH SALINE LOCKED, PATENT AND INTACT. SAFETY MEASURES MAINTAINED. CALL LIGHT WITHIN REACH. BED ON LOWEST AND LOCKED POSITION WITH SIDE RAILS UP X2. WILL CONTINUE TO MONITOR.
[2021-02-06 20:00] VITALS: BP 120/66
[2021-02-07] VITALS (8 sets, daily range): BP systolic 106–129; BP diastolic 62–71
[2021-02-07] MEDS: IPRATROPIUM NEB FS 0.5 MG/2.5 ML AMPUL.NEB NEB SCH ×6 (03:59→23:23)
[2021-02-07] MEDS: ALBUTEROL FS 2.5 MG/3 ML VIAL.NEB NEB SCH ×6 (03:59→23:24)
--- NOTE | 2021-02-07 06:00 | NUR ---
RN NOTES PATIENT REFUSED BLOOD DRAW FOR AM LABS.
--- NOTE | 2021-02-07 07:09 | NUR ---
MS RN CLOSING NOTES PATIENT ON BED, AWAKE, UNCOOPERATIVE AND A/O X4. ON O2 VIA NASAL CANNULA AT 4LPM. NO SOB NOTED. NOT IN APPARENT DISTRESS. WITH NO COMPLAINTS OF PAIN OR ANY DISCOMFORT AT THIS TIME. WITH IV ACCESS AT RIGHT HAND G22 AND LEFT FA G20, BOTH SALINE LOCKED, PATENT AND INTACT. SAFETY MEASURES MAINTAINED. CALL LIGHT WITHIN REACH. BED ON LOWEST AND LOCKED POSITION WITH SIDE RAILS UP X2. WILL ENDORSE TO NEXT SHIFT FOR ALYSHA..
[2021-02-07] MEDS: ENSURE ENLIVE 237 ML LIQUID (VANILLA) PO SCH (09:11)
[2021-02-07 10:19] LABS: ALBUMIN 1.9 g/dL (3.4-5.0); BILIRUBIN,DIRECT 0.2 mg/dL (0.0-0.2); BILIRUBIN,TOTAL 0.4 mg/dL (0.2-1.0); CALCIUM, SERUM 8.2 mg/dL (8.5-10.1); CREATININE 0.8 mg/dL (0.6-1.3); MAGNESIUM 1.5 mg/dL (1.8-2.4); PHOSPHORUS 3.3 mg/dL (2.5-4.9); POTASSIUM 4.1 mmol/L (3.5-5.1); TOTAL PROTEIN, SERUM 5.7 g/dL (6.4-8.2)
--- NOTE | 2021-02-07 12:15 | NUR ---
o2 on 2-3l pox 94%.now with o2 off for 7 minutes 02 sat 76%.
--- NOTE | 2021-02-07 15:30 | NUR ---
US GUIDED THORACENTESIS DONE.ORANGISH COLORED FLUID REMOVED TOTAL OF [address] KAY REGARDING NEED FOR TESTS TO BE DONE ON FLUID.DC ORDER GIVEN CASE MGMT. WORKING ON THIS AND O2 ORDERED FOR HOME.ADVISED PT. GO TO SNF.BUT REFUSING.SON IN TO SEE PT.
--- NOTE | 2021-02-07 16:00 | NUR ---
HEP LOCKS OUT PER PT. REQUEST SHE HAS DC ORDER.
[2021-02-07 17:07] LABS: BASOPHILS % (AUTO) 0.3 % (0.0-2.0); EOSINOPHILS % (AUTO) 0.5 % (0.0-6.0); LYMPHOCYTES # (AUTO) 0.7 K/uL (0.8-4.8); LYMPHOCYTES % (AUTO) 6.6 % (20.0-44.0); MEAN CORPUSCULAR HGB CONC 33 g/dl (31.0-36.0); MEAN CORPUSCULAR VOLUME 102 fL (82-100); MONOCYTES # (AUTO) 1.1 K/uL (0.1-1.30); MONOCYTES % (AUTO) 10.6 % (2.0-12.0); NEUTROPHILS # (AUTO) 8.6 K/uL (1.8-8.9); PLATELET COUNT (AUTO) 395 K/uL (150-450); WHITE BLOOD COUNT (AUTO) 10.5 K/uL (4.3-11.0)
[2021-02-07 17:08] LABS: RED BLOOD CELL COUNT(AUTO) 1.95 MIL/uL (4.0-5.2)
[2021-02-07 17:11] LABS: HEMATOCRIT 20 % (33-45); HEMOGLOBIN 6.7 g/dL (11.5-14.8)
[2021-02-07] MEDS ORDERED: ACETAMINOPHEN 325 MG TABLET PO ONE ×2 (17:30→20:00)
[2021-02-07] MEDS ORDERED: diphenhydrAMINE HCL 50 MG/ML VIAL IV ONE ×2 (17:30→20:00)
--- NOTE | 2021-02-07 18:00 | NUR ---
DR. VENEGAS'S LEGAL FINANCIAL SPECIALIST HERE AND ORDERED [facility]-NOW PT. WITH NEED FOR BLOOD TRANSFUSION.
--- NOTE | 2021-02-07 19:30 | NUR ---
MS RN OPENING NOTE RECEIVED PT AWAKE IN BED. A/O X4. PT ON O2 VIA NC AT 4LPM. NO SOB OR S/S OF RESPIRATORY DISTRESS NOTED. PT HAS NO C/O PAIN OR DISCOMFORT AT THIS TIME. IV ACCESS IN LFA #20, INTACT AND PATENT. SAFETY PRECAUTIONS MAINTAINED. BED IN LOWEST LOCKED POSITION, HOB ELEVATED, SIDE RAILS UP X2. CALL LIGHT AND TABLE WITHIN REACH. WILL CONTINUE WITH PLAN OF CARE.
--- NOTE | 2021-02-07 20:26 | NUR ---
STARTED BLOOD TRANSFUSION OF 1 UNIT PRBC AT THIS TIME. PT EDUCATED ON RISKS AND BENEFITS OF TRANSFUSION. PT EDUCATED TO REPORT ANY ADVERSE EFFECTS OF TRANSFUSION REACTIONS SUCH SOB, CHILLS, HEADACHE, FEVER, BACK PAIN, HIVES. PT VERBALIZED UNDERSTANDING. BLOOD CONSENT VERIFIED. PRE TRANSFUSION VITAL SIGNS BP 129/71, HR 101, T 97.9, RR 20, SPO2 99%. BLOOD VERIFIED AT PT'S BEDSIDE BY 2 RN'S PRIOR TO STARTING. WILL CONTINUE TO MONITOR.
--- NOTE | 2021-02-07 21:26 | NUR ---
BLOOD TRANSFUSION ENDED AT THIS TIME. VITAL SIGNS WNL. NO ADVERSE EFFECTS OF TRANSFUSION REACTIONS NOTED. WILL CONTINUE TO MONITOR PT.
[2021-02-08] MEDS: IPRATROPIUM NEB FS 0.5 MG/2.5 ML AMPUL.NEB NEB SCH ×3 (03:30→11:14)
[2021-02-08] MEDS: ALBUTEROL FS 2.5 MG/3 ML VIAL.NEB NEB SCH ×3 (03:30→11:14)
[2021-02-08 06:38] LABS: BASOPHILS % (AUTO) 0.3 % (0.0-2.0); EOSINOPHILS % (AUTO) 0.5 % (0.0-6.0); HEMATOCRIT 22 % (33-45); HEMOGLOBIN 7.5 g/dL (11.5-14.8); LYMPHOCYTES # (AUTO) 0.6 K/uL (0.8-4.8); LYMPHOCYTES % (AUTO) 7.4 % (20.0-44.0); MEAN CORPUSCULAR HGB CONC 34 g/dl (31.0-36.0); MEAN CORPUSCULAR VOLUME 97 fL (82-100); MONOCYTES # (AUTO) 0.8 K/uL (0.1-1.30); MONOCYTES % (AUTO) 9.3 % (2.0-12.0); NEUTROPHILS # (AUTO) 6.9 K/uL (1.8-8.9); NEUTROPHILS % (AUTO) 82.5 % (43.0-81.0); PLATELET COUNT (AUTO) 315 K/uL (150-450); RED BLOOD CELL COUNT(AUTO) 2.29 MIL/uL (4.0-5.2); WHITE BLOOD COUNT (AUTO) 8.3 K/uL (4.3-11.0)
--- NOTE | 2021-02-08 07:01 | NUR ---
MS RN CLOSING NOTE PT IS AWAKE IN BED. A/O X4. PT ON O2 VIA NC AT 4LPM. NO SOB OR S/S OF RESPIRATORY DISTRESS NOTED. PT HAS NO C/O PAIN OR DISCOMFORT AT THIS TIME. IV ACCESS IN LFA #20, INTACT AND PATENT. ALL NEEDS HAVE BEEN MET. SAFETY PRECAUTIONS MAINTAINED AT ALL TIMES. BED IN LOWEST LOCKED POSITION, HOB ELEVATED, SIDE RAILS UP X2. CALL LIGHT AND TABLE WITHIN REACH. WILL ENDORSE TO ONCOMING NURSE FOR ALYSHA.
[2021-02-08 08:00] VITALS: BP 126/67
--- NOTE | 2021-02-08 08:00 | NUR ---
RECEIVED PT. IN AM ALERT AND ORIENTED X3-4.AUTOTRANSFUSIONIST LIGHT FREQ.VS STABLE.KEEPING O2 ON TODAY PT. DESATURATES.NO ACUTE DISTRESS.
[2021-02-08] MEDS: ENSURE ENLIVE 237 ML LIQUID (VANILLA) PO SCH (09:00)
--- NOTE | 2021-02-08 14:00 | NUR ---
refused discharge photos.
--- NOTE | 2021-02-08 15:00 | NUR ---
DID RAPID COVID TEST PER CASE MGMT. RN COULD FIND NO RECORD IN COMPUTER.TEST NEGATIVE.SPOUSE HERE WITH PORTABLE O2.AND INSTRUCTED IN 02 SAFETY.HEP LOCK OUT.GIVEN DC INSTRUCTIONS.TAKEN VIA W/C TO LOBBY FOR DC ACC. BY SPOUSE AND EMT B.ALL PAPER SIGNED.
== END 2021-02-08 15:45 | disposition home health service (06) | DRG 871 ==
LOC: TELE1 18:52 → TELE 01-30 13:16 → MED 02-06 10:27
PROVIDERS: ADMIT Internal Medicine; ATTEND Internal Medicine
PROC: 0W9B3ZZ Drainage of Left Pleural Cavity, Percutaneous Approach (ICD-10-PCS; principal; 2021-01-30)
PROC: 0W9B3ZZ Drainage of Left Pleural Cavity, Percutaneous Approach (ICD-10-PCS; 2021-02-07)
PROC: 30233N1 Transfusion of Nonautologous Red Blood Cells into Peripheral Vein, Percutaneous Approach (ICD-10-PCS; 2021-02-07)
DX: A41.9 Sepsis, unspecified organism (principal); E43 Unspecified severe protein-calorie malnutrition; J96.01 Acute respiratory failure with hypoxia; N17.0 Acute kidney failure with tubular necrosis; J15.9 Unspecified bacterial pneumonia; E87.1 Hypo-osmolality and hyponatremia; J90 Pleural effusion, not elsewhere classified; E87.2 Acidosis; K86.2 Cyst of pancreas; R64 Cachexia; I10 Essential (primary) hypertension; E88.09 Other disorders of plasma-protein metabolism, not elsewhere classified; E78.5 Hyperlipidemia, unspecified; E86.0 Dehydration; E86.1 Hypovolemia; N28.1 Cyst of kidney, acquired; J43.9 Emphysema, unspecified; K76.89 Other specified diseases of liver; D53.9 Nutritional anemia, unspecified; Z20.822 Contact with and (suspected) exposure to COVID-19; D72.825 Bandemia
CPT/HCPCS: 36415; 36600; 71045-TC; 71250-TC; 74178; 74181-TC; 80048-TC; 80076-TC; 81001; 82150-TC; 82378; 82728-TC; 82784; 83540-TC; 83690-TC; 83735-TC; 84100-TC; 84155; 84155-TC; 84165; 84443-TC; 85025-TC; 85610-TC; 86301; 86316; 86334; 86850-TC; 87040-TC; 87070-TC; 87075-TC; 87081-TC; 87102-TC; 89051-TC; 94799-TC; 97112-TC; 97530-TC; G0378; J0696; J1200; J2185; J2270; J2405; J3475; J3480; J3490; J7030; J7050; J7060; P9016; Q9967